=== PATIENT | female | born 1960 | race Caucasian/White ===

== ENCOUNTER 2018-04-05 12:58 | Emergency (ER) | payer OTHER ==
[2018-04-05 13:23] VITALS: BP 114/70
--- NOTE | 2018-04-05 13:43 | UC ---
General HPI - HPI Summary HPI Summary: pt is c/o a "blood shot eye" that is worsening. roused from a nap with this at 7pm yesterday. denies hx injury, drainage and visual changes. no uri, FOLEY or fever and no n/v. wear glasses. notes pressure lateral to this L eye and below the eye. no hx bleeding disorder, anticoagulant use or issues or bruising/ bleeding or contact use. - History of Current Complaint Hx Obtained From: Patient Hx Last Menstrual Period: 09/2016 Aggravating: nothing Alleviating: nothing Associated Signs & Symptoms: Negative: Anticoagulation Therapy, Fever, Headache , Nausea, Vomiting <Valentina Elkins - Last Filed: 04/05/18 14:31> <Selene Chatman - Last Filed: 04/05/18 17:39> - History of Current Complaint Stated Complaint: LEFT SIDED FACIAL PAIN & BLOOD SHOT EYE Time Seen by Provider: 04/05/18 13:16 - Allergy/Home Medications Allergies/Adverse Reactions: Allergies Allergy/AdvReac Type Severity Reaction Status Date / Time meperidine [From Demerol] Allergy See Comment Verified 04/05/18 13:07 Home Medications: Home Medications Loratadine [Claritin 10 MG CAP] 10 mg PO DAILY PRN 04/05/18 [History Confirmed 04/05/18] Omeprazole CAP* [Prilosec CAP* 20 MG] 20 mg PO DAILY PRN 04/05/18 [History Confirmed 04/05/18] Vybrid 1 tab PO DAILY 04/05/18 [History Confirmed 04/05/18] PMH/Surg Hx/FS Hx/Imm Hx - Additional Past Medical History Additional PMH: tremor Endocrine History: Thyroid Disease Psychological History: Depression - Surgical History Surgical History: Yes Surgery Procedure, Year, and Place: both knees, vaginal sling, carpal tunnel left hand Other Surgical History: vaginal sling, knee re-construction - Family History Known Family History: Positive: None Negative: Cardiac Disease, Hypertension, Diabetes - Social History Occupation: Employed Full-time Alcohol Use: None Substance Use Type: None Smoking Status (MU): Former Smoker Type: Cigarettes Have You Smoked in the Last Year: No When Did the Patient Quit Smoking/Using Tobacco: 39 years ago - Immunization History Most Recent Influenza Vaccination: 08/18 Hx Tetanus, Diphtheria Vaccination: Yes Vaccination Up to Date: Yes <Valentina Elkins - Last Filed: 04/05/18 14:31> Review of Systems Constitutional: Negative Skin: Negative Eyes: Eye Redness - L ENT: Negative Respiratory: Negative Cardiovascular: Negative Gastrointestinal: Negative Genitourinary: Negative Motor: Negative Neurovascular: Negative Musculoskeletal: Negative Neurological: Negative Psychological: Negative All Other Systems Reviewed And Are Negative: Yes <Valentina Elkins - Last Filed: 04/05/18 14:31> Physical Exam Triage Information Reviewed: Yes Appearance: Well-Appearing Eyes: Positive: Other: - visual acuity with glasses OD 20/30, OU 20/20, OS 20/ 20. No periorbital edema or erythema. PERRL, EOMI, AC's clear. Lid everted on L , no FB's. Circumfrential subconjunctival hemorrhage L eye but more sever to lateral eye. Stained and no abrasions, perforations, ulcerations or dendrites. Globe not firm of tender. no auricular adenopathy. ENT: Positive: Pharynx normal, TMs normal. Negative: Nasal congestion, Nasal drainage Neck: Positive: Supple, Nontender, No Lymphadenopathy Respiratory: Positive: Lungs clear, Normal breath sounds Cardiovascular: Positive: RRR, No Murmur Abdomen Description: Positive: Nontender, No Organomegaly, Soft Bowel Sounds: Positive: Present Musculoskeletal: Positive: ROM Intact Neurological: Positive: Alert Psychological: Positive: Age Appropriate Behavior Skin Exam: Normal Skin: Negative: rashes <Valentina Elkins - Last Filed: 04/05/18 14:31> Vital Signs: Initial Vital Signs Temp 98.6 F 04/05/18 13:17 Pulse 61 04/05/18 13:17 Resp 16 04/05/18 13:17 BP 114/70 04/05/18 13:17 Pulse Ox 98 04/05/18 13:17 <Selene Chatman - Last Filed: 04/05/18 17:39> Course/Dx - Course Course Of Treatment: no abrasion, perforation, dendrite, ulcers on exam. no concern for glaucoma. nothing to suggest ruptured globe. exam c/w subconjunctival hemorrhage. pt to f/u with her eye doctor in 2 days for a recheck or sooner if worse. - Differential Dx - Multi-Symptom Provider Diagnoses: Subconjunctival hemorrhage L eye. <SeveroValentina - Last Filed: 04/05/18 14:31> Discharge - Sign-Out/Discharge Documenting (check all that apply): Discharge/Admit/Transfer - Billing Disposition and Condition Condition: STABLE Disposition: HOME <ElkinsValentina - Last Filed: 04/05/18 14:31> - Billing Disposition and Condition Condition: STABLE Disposition: HOME <Selene Chatman - Last Filed: 04/05/18 17:39> - Discharge Plan Condition: Stable Disposition: HOME Patient Education Materials: Subconjunctival Hemorrhage (ED) Forms: *Work Release Referrals: Elyssa Chatman MD [Primary Care Provider] - If Needed Jack Arreola OD [Doctor of Osteopathy] - 2 Days Additional Instructions: DO NOT RUB/ITCH THE EYE. APPLY A COOL COMPRESS 3-4X'S DAILY. DO NOT PUT ANYTHING IN THE EYE EXCEPT EYE LUBRICANT DROPS. FOLLOW UP DR ARREOLA (YOUR EYE DOCTOR)THIS SATURDAY(2 DAYS FOR A RECHECK). CALL HIM IMMEDIATELY FOR ANY WORSENING Attestation Statement User Type: Provider - I was available for consult. This patient was seen by the MALINI. The patient was not presented to, seen by, or examined by me. -Luiza <Selene Chatman - Last Filed: 04/05/18 17:39>
[2018-04-05] MEDS ORDERED: Fluorescein Sod TOPICAL 0.6* 0.6 MG TEST OPHTHALMIC ONE (13:51)
== END 2018-04-05 14:38 | disposition home or self-care (01) ==
LOC: UCCORT 12:58
DX: H11.32 Conjunctival hemorrhage, left eye (principal); Z88.5 Allergy status to narcotic agent; Z87.891 Personal history of nicotine dependence
CPT/HCPCS: 99211; G0463